=== PATIENT | female | born 1995 | race Asian ===

== ENCOUNTER 2024-06-01 08:23 | Outpatient (CLI) | payer BC | END 2024-06-01 08:24 | disposition home or self-care (01) | LOC: CSHULT 08:23 | PROVIDERS: ATTEND Nurse Practitioner Women's Health | DX: N63.20 Unspecified lump in the left breast, unspecified quadrant (principal) ==

== ENCOUNTER 2024-07-28 07:52 | Day surgery (SDC) | payer BC ==
[2024-07-28 08:09] VITALS: BMI 23.2
== END 2024-07-28 10:23 | disposition home health service (06) ==
LOC: CSHLD/OP 07:52
PROVIDERS: ATTEND Student in an Organized Health Care Education/Training Program
DX: O47.1 False labor at or after 37 completed weeks of gestation (principal); Z3A.40 40 weeks gestation of pregnancy; Z79.899 Other long term (current) drug therapy
CPT/HCPCS: 99282

== ENCOUNTER 2024-07-29 03:25 | Inpatient (IN) | payer BC ==
[2024-07-29] MEDS ORDERED: Misoprostol 200 MCG TAB RC PRN (04:00)
[2024-07-29] MEDS ORDERED: Ondansetron PF 4 MG/2 ML Vial IVP PRN ×3 (04:00→14:51)
[2024-07-29] MEDS ORDERED: Promethazine HCl 25 MG/ML VIAL IM PRN ×3 (04:00→14:51)
[2024-07-29] MEDS ORDERED: fentaNYL 50 mcg/mL 1 mL Vial SLOW IVP PRN (04:00)
[2024-07-29] MEDS ORDERED: Carboprost 250 MCG/ML AMP IM PRN (04:00)
[2024-07-29] MEDS ORDERED: hydrALAZINE 20 MG/ML VIAL SLOW IVP PRN ×2 (04:00→14:51)
[2024-07-29] MEDS ORDERED: Lactated Ringer's 1,000 ML IV SCH ×2 (04:00)
[2024-07-29] MEDS ORDERED: Diphenoxylate HCl/Atropine Tablet PO PRN ×2 (04:00)
[2024-07-29] MEDS ORDERED: Methylergonovine 0.2 MG/ML VIAL IM PRN (04:00)
[2024-07-29] MEDS ORDERED: Acetaminophen 500 MG TAB PO PRN (04:00)
[2024-07-29] MEDS ORDERED: Tranexamic Acid 1,000 MG/10 ML VIAL IVP PRN (04:00)
[2024-07-29] MEDS ORDERED: Oxytocin 30 units/NS 500 ML 500 ML IV SCH (04:00)
[2024-07-29 04:03] LABS: Hematocrit 34.7 % (34.9-44.5); Hemoglobin 12.4 g/dL (12.0-15.5); Mean Corpuscular HGB CONC 35.7 g/dL (32.0-36.0); Mean Corpuscular Hemoglobin 33.4 pg (27.0-33.0); Mean Corpuscular Volume 93.5 fL (81.6-98.3); Platelet Count 191 10x3/uL (150-450); RBC Distribution Width 13.6 % (11.5-14.5); Red Blood Cell (RBC) Count 3.71 10x6/uL (3.90-5.03); White Blood Cell (WBC) Count 13.45 10x3/uL (3.5-10.5)
[2024-07-29] MEDS ORDERED: Lidocaine 1% (PF) 30 ML VIAL SC PRN (04:15)
[2024-07-29 04:47] LABS: HBsAg Index 0.21 S/CO (0-0.99); Hep B Surf Ag - L&D Non-Reactive S/CO (NonReactive); Syphilis Antibody Nonreactive (Nonreactive); Syphilis Antibody Index 0.05 S/CO (<1.00 Non-Reactive)
[2024-07-29] MEDS: fentaNYL/Ropivacaine Epidural 100 ML ONE (04:47)
[2024-07-29] MEDS ORDERED: diphenhydrAMINE 50 MG/ML VIAL IVP PRN (04:51)
[2024-07-29] MEDS ORDERED: ePHEDrine Sulfate 50 MG/10 ML VIAL SLOW IVP PRN (04:51)
[2024-07-29] MEDS ORDERED: Naloxone HCl 0.4 mg/ml Vial IVP PRN ×2 (04:51)
[2024-07-29] MEDS ORDERED: Moisturizing Cream (Eucerin) 113 GM JAR TOP PRN (04:51)
[2024-07-29] MEDS ORDERED: Acetaminophen 325 MG TAB PO PRN (04:51)
[2024-07-29] MEDS ORDERED: Lactated Ringer's 500 ML IV PRN (04:51)
[2024-07-29] MEDS ORDERED: fentaNYL 2 mcg/Ropivacaine 0.2% Epidural 100 ML CADD EPIDURAL SCH (05:00)
[2024-07-29] MEDS ORDERED: Communication Order-Pharmacy FS SCH (05:00)
[2024-07-29] MEDS ORDERED: Lanolin Ointment 7 GM TUBE TOP PRN (14:51)
[2024-07-29] MEDS ORDERED: Bisacodyl 10 MG SUPP PR PRN (14:51)
[2024-07-29] MEDS ORDERED: HYDROcodone/Acetaminophen 5/325 mg Tablet PO PRN (14:51)
[2024-07-29] MEDS ORDERED: Preparation H Ointment 28 GM TUBE PR PRN (14:51)
[2024-07-29] MEDS ORDERED: diphenhydrAMINE 25 MG CAP PO PRN (14:51)
[2024-07-29] MEDS: Ibuprofen 800 MG TAB PO SCH (15:09)
[2024-07-29] MEDS: Boostrix 0.5 ML (Tdap) VIAL (>/=7 yrs of age) IM ONE (16:06)
[2024-07-29] MEDS: Ferrous Sulfate 325 MG TAB PO SCH (17:47)
[2024-07-29] MEDS: HYDROcodone/Acetaminophen 5/325 mg Tablet PO PRN (18:17)
[2024-07-29] MEDS: Docusate 100 MG CAP PO SCH (22:04)
[2024-07-29] MEDS: Benzocaine-Menthol 82.5 ML CAN TOP PRN (22:20)
[2024-07-30] MEDS: Milk Of Magnesia 30 ML UDCUP PO SCH (09:14)
[2024-07-30] MEDS: Prenatal Vitamin 1 TAB PO SCH (09:14)
[2024-07-30] MEDS ORDERED: Bupivacaine/Epinephrine 0.25% 30 ML VIAL ONE (17:00)
[2024-07-31] MEDS: Magnesium Citrate 300 ML BOT PO SCH (07:22)
[2024-07-31 12:09] VITALS: BP 122/65; TEMP 98.4
== END 2024-07-31 16:30 | disposition home or self-care (01) | DRG 768 ==
LOC: CSHLD/OP 03:25 → CSHLD 03:48 → CSHPED 15:56
PROVIDERS: ADMIT Student in an Organized Health Care Education/Training Program; ATTEND Student in an Organized Health Care Education/Training Program
PROC: 10D07Z6 Extraction of Products of Conception, Vacuum, Via Natural or Artificial Opening (ICD-10-PCS; principal; 2024-07-29)
PROC: 0DQP0ZZ Repair Rectum, Open Approach (ICD-10-PCS; 2024-07-29)
PROC: 3E0S3BZ Introduction of Anesthetic Agent into Epidural Space, Percutaneous Approach (ICD-10-PCS; 2024-07-29)
DX: O48.0 Post-term pregnancy (principal); Z37.0 Single live birth; O70.3 Fourth degree perineal laceration during delivery; Z3A.40 40 weeks gestation of pregnancy
CPT/HCPCS: 36415; 51702; 85027; 86780; 86850; 86900; 86901; 87340; 99285